=== PATIENT | female | born 1980 | race Caucasian/White ===

== ENCOUNTER 2017-12-03 00:52 | Inpatient (IN) | payer OTHER, MEDICARE ==
[2017-12-03] MEDS ORDERED: SODIUM CHLORIDE 0.9% 1,000 ML IV STA (01:00)
--- NOTE | 2017-12-03 01:08 | ED ---
Seizure HPI - General Chief Complaint: Seizure Stated Complaint: Seizure Time Seen by Provider: 12/03/17 01:00 Source: patient, family, EMS, RN notes reviewed Mode of arrival: EMS Limitations: no limitations - History of Present Illness Initial Comments: This is a 37-year-old female with a history of vasculitis as well as a previous history of stroke with carotid endarterectomy about 5 years ago who does have an aneurysm that was clipped also who apparently per her osmolality DL and stiffened up for approximately 10 minutes she did bite her lip and tongue is unclear whether was any shaking involved areas no urinary or fecal incontinence the patient's states her is about 5 minutes until she began respond at all. She normally is awake alert oriented 4. She was very confused is becoming less and less confused more oriented as time goes on. She was brought in by EMS. No recent trauma fevers chills nausea vomiting sweats no change in medications. No other modifying factors at this time MD Complaint: possible seizure - Related Data Home Medications Medication Instructions Recorded Confirmed LORazepam [Ativan] 1 mg PO DAILY PRN 08/18/17 08/18/17 Methyldopa 125 mg PO BID 08/18/17 08/18/17 Midodrine HCl [ProAmatine] 2.5 mg PO TID 08/18/17 08/18/17 Omeprazole 20 mg PO BID 08/18/17 08/18/17 Ranitidine HCl [Zantac] 75 mg PO DAILY PRN 08/18/17 08/18/17 diphenhydrAMINE [Benadryl] 50 mg PO HS PRN 08/18/17 08/18/17 tiZANidine [Zanaflex] 0.5 mg PO DAILY PRN 08/18/17 08/18/17 tiZANidine [Zanaflex] 1 mg PO HS PRN 08/18/17 08/18/17 Allergies Allergy/AdvReac Type Severity Reaction Status Date / Time acetaminophen [From Vicodin] Allergy Rash/Hives Verified 08/18/17 22:40 amoxicillin Allergy Rash/Hives Verified 08/18/17 22:40 ciprofloxacin Allergy Rash/Hives Verified 08/18/17 22:40 hydrocodone [From Vicodin] Allergy Rash/Hives Verified 08/18/17 22:40 Iodinated Contrast- Oral and Allergy Rash/Hives Verified 08/18/17 22:40 IV Dye morphine Allergy Rash/Hives Verified 08/18/17 22:40 oxycodone Allergy Rash/Hives Verified 08/18/17 22:40 pregabalin [From Lyrica] Allergy Rash/Hives Verified 08/18/17 22:40 pseudoephedrine Allergy Swelling Verified 08/18/17 22:40 [From Sudafed] topiramate [From Topamax] Allergy Confusion Verified 08/18/17 22:40 vancomycin Allergy Rash/Hives Verified 08/18/17 22:40 Review of Systems ROS Statement: Those systems with pertinent positive or pertinent negative responses have been documented in the HPI. ROS Other: All systems not noted in ROS Statement are negative. Past Medical History Additional Past Medical History / Comment(s): behcet's syndrome, francisco j daniles , POTS disorder, hx of spontaneous CSF leaks, brain aneurysm with clips, hemhorrage, cystitis, dystonia. History of Any Multi-Drug Resistant Organisms: None Reported Past Surgical History: Adenoidectomy, Section, Hysterectomy, Tonsillectomy Additional Past Surgical History / Comment(s): craniotomy, lap Additional Past Anesthesia/Blood Transfusion Reaction / Comment(s): Aspiration during colonoscopy Past Psychological History: No Psychological Hx Reported Smoking Status: Never smoker Past Alcohol Use History: None Reported Past Drug Use History: None Reported General Exam - General Exam Comments Initial Comments: This is a well-developed well-nourished awake alert oriented female who is so confused to the actual month Limitations: no limitations General appearance: alert, anxious Head exam: Present: atraumatic, normocephalic, normal inspection Eye exam: Present: normal appearance, PERRL, EOMI. Absent: scleral icterus, conjunctival injection, periorbital swelling ENT exam: Present: mucous membranes moist, other (Abrasion seen to the right lateral tip of the tongue as well as to the lower right and mid lip no active bleeding no suture repair indicated.) Neck exam: Present: normal inspection. Absent: tenderness, meningismus, lymphadenopathy Respiratory exam: Present: normal lung sounds bilaterally. Absent: respiratory distress, wheezes, rales, rhonchi, stridor Cardiovascular Exam: Present: regular rate, normal rhythm, normal heart sounds. Absent: systolic murmur, diastolic murmur, rubs, gallop, clicks GI/Abdominal exam: Present: soft, normal bowel sounds. Absent: distended, tenderness, guarding, rebound, rigid Extremities exam: Present: normal inspection, full ROM, normal capillary refill. Absent: tenderness, pedal edema, joint swelling, calf tenderness Back exam: Present: normal inspection Neurological exam: Present: alert, oriented X3, CN II-XII intact Psychiatric exam: Present: normal affect, normal mood Skin exam: Present: warm, dry, intact, normal color. Absent: rash Course Vital Signs 12/03/17 12/03/17 00:54 02:36 Temperature 97.5 F L Pulse Rate 94 79 Respiratory 16 20 Rate Blood Pressure 134/78 101/56 O2 Sat by Pulse 100 98 Oximetry Medical Decision Making - Medical Decision Making Reevaluation patient reveals she is awake alert oriented 3. No further activity the patient will be admitted for evaluation of what appears be a new onset seizure disorder. Patient does states she may have had a similar episode in the past. - Lab Data Result diagrams: 12/03/17 01:03 12/03/17 01:03 Lab Results 12/03/17 12/03/17 12/03/17 Range/Units 01:03 01:03 01:03 WBC 8.8 (3.8-10.6) k/uL RBC 4.33 (3.80-5.40) m/uL Hgb 12.9 (11.4-16.0) gm/dL Hct 37.6 (34.0-46.0) % MCV 86.8 (80.0-100.0) fL MCH 29.9 (25.0-35.0) pg MCHC 34.5 (31.0-37.0) g/dL RDW 12.9 (11.5-15.5) % Plt Count 252 (150-450) k/uL Neutrophils % 63 % Lymphocytes % 30 % Monocytes % 4 % Eosinophils % 1 % Basophils % 0 % Neutrophils # 5.6 (1.3-7.7) k/uL Lymphocytes # 2.6 (1.0-4.8) k/uL Monocytes # 0.4 (0-1.0) k/uL Eosinophils # 0.1 (0-0.7) k/uL Basophils # 0.0 (0-0.2) k/uL Sodium 143 (137-145) mmol/L Potassium 4.1 (3.5-5.1) mmol/L Chloride 103 (98-107) mmol/L Carbon Dioxide 23 (22-30) mmol/L Anion Gap 17 mmol/L BUN 24 H (7-17) mg/dL Creatinine 0.80 (0.52-1.04) mg/dL Est GFR (CKD-EPI)AfAm >90 (>60 ml/min/1.73 sqM) Est GFR (CKD-EPI)NonAf >90 (>60 ml/min/1.73 sqM) Glucose 83 (74-99) mg/dL Calcium 10.0 (8.4-10.2) mg/dL Magnesium 1.9 (1.6-2.3) mg/dL Total Bilirubin 0.3 (0.2-1.3) mg/dL AST 28 (14-36) U/L ALT 23 (9-52) U/L Alkaline Phosphatase 173 H (38-126) U/L Total Creatine Kinase 152 H (30-135) U/L CK-MB (CK-2) 2.0 (0.0-2.4) ng/mL CK-MB (CK-2) Rel Index 1.3 Troponin I <0.012 (0.000-0.034) ng/mL Total Protein 6.8 (6.3-8.2) g/dL Albumin 4.5 (3.5-5.0) g/dL Urine Color Urine Appearance (Clear) Urine pH (5.0-8.0) Ur Specific [place] (1.001-1.035) Urine Protein (Negative) Urine Glucose (UA) (Negative) Urine Ketones (Negative) Urine Blood (Negative) Urine Nitrite (Negative) Urine Bilirubin (Negative) Urine Urobilinogen (<2.0) mg/dL Ur Leukocyte Esterase (Negative) Urine RBC (0-5) /hpf Urine WBC (0-5) /hpf Ur Squamous Epith Cells (0-4) /hpf Hyaline Casts (0-2) /lpf Urine Mucus (None) /hpf 12/03/17 Range/Units 01:51 WBC (3.8-10.6) k/uL RBC (3.80-5.40) m/uL Hgb (11.4-16.0) gm/dL Hct (34.0-46.0) % MCV (80.0-100.0) fL MCH (25.0-35.0) pg MCHC (31.0-37.0) g/dL RDW (11.5-15.5) % Plt Count (150-450) k/uL Neutrophils % % Lymphocytes % % Monocytes % % Eosinophils % % Basophils % % Neutrophils # (1.3-7.7) k/uL Lymphocytes # (1.0-4.8) k/uL Monocytes # (0-1.0) k/uL Eosinophils # (0-0.7) k/uL Basophils # (0-0.2) k/uL Sodium (137-145) mmol/L Potassium (3.5-5.1) mmol/L Chloride (98-107) mmol/L Carbon Dioxide (22-30) mmol/L Anion Gap mmol/L BUN (7-17) mg/dL Creatinine (0.52-1.04) mg/dL Est GFR (CKD-EPI)AfAm (>60 ml/min/1.73 sqM) Est GFR (CKD-EPI)NonAf (>60 ml/min/1.73 sqM) Glucose (74-99) mg/dL Calcium (8.4-10.2) mg/dL Magnesium (1.6-2.3) mg/dL Total Bilirubin (0.2-1.3) mg/dL AST (14-36) U/L ALT (9-52) U/L Alkaline Phosphatase (38-126) U/L Total Creatine Kinase (30-135) U/L CK-MB (CK-2) (0.0-2.4) ng/mL CK-MB (CK-2) Rel Index Troponin I (0.000-0.034) ng/mL Total Protein (6.3-8.2) g/dL Albumin (3.5-5.0) g/dL Urine Color Light Yellow Urine Appearance Clear (Clear) Urine pH 5.0 (5.0-8.0) Ur Specific [place] 1.022 (1.001-1.035) Urine Protein Trace H (Negative) Urine Glucose (UA) Negative (Negative) Urine Ketones 3+ H (Negative) Urine Blood Negative (Negative) Urine Nitrite Negative (Negative) Urine Bilirubin Negative (Negative) Urine Urobilinogen <2.0 (<2.0) mg/dL Ur Leukocyte Esterase Large H (Negative) Urine RBC 1 (0-5) /hpf Urine WBC 15 H (0-5) /hpf Ur Squamous Epith Cells <1 (0-4) /hpf Hyaline Casts 8 H (0-2) /lpf Urine Mucus Rare H (None) /hpf - EKG Data -: EKG Interpreted by Me EKG shows normal: sinus rhythm (Sinus rhythm rate of 80 OR interval 162 QRS 84 QT since QTC of 386/[address]-T wave changes) - Radiology Data Radiology results: report reviewed (I did review the imaging and report no acute findings.), image reviewed Disposition Clinical Impression: New onset seizure Dis[facility] Condition: Stable Referrals: Rafael Arellano MD [REFERRING] - 1-2 days
[2017-12-03 01:15] LABS: HCT 37.6 % (34.0-46.0); HGB 12.9 gm/dL (11.4-16.0); MCH 29.9 pg (25.0-35.0); MCHC 34.5 g/dL (31.0-37.0); MCV 86.8 fL (80.0-100.0); Mean Platelet Volume 7.7; Platelet Count 252 k/uL (150-450); RBC 4.33 m/uL (3.80-5.40); RDW 12.9 % (11.5-15.5); WBC 8.8 k/uL (3.8-10.6)
[2017-12-03 01:25] LABS: ALT 23 U/L (9-52); AST 28 U/L (14-36); Albumin 4.5 g/dL (3.5-5.0); Alkaline Phosphatase 173 U/L (38-126); Anion Gap 17 mmol/L; Blood Urea Nitrogen 24 mg/dL (7-17); Carbon Dioxide 23 mmol/L (22-30); Chloride 103 mmol/L (98-107); Glucose 83 mg/dL (74-99); Magnesium 1.9 mg/dL (1.6-2.3); Potassium 4.1 mmol/L (3.5-5.1); Sodium 143 mmol/L (137-145); Total Bilirubin 0.3 mg/dL (0.2-1.3); Total Protein 6.8 g/dL (6.3-8.2)
[2017-12-03 01:35] LABS: Creatine Kinase 152 U/L (30-135)
[2017-12-03 01:48] LABS: Troponin I <0.012 ng/mL (0.000-0.034)
--- NOTE | 2017-12-03 02:05 | CT ---
EXAM: CT Head Without Intravenous Contrast CLINICAL HISTORY: : seizure activity TECHNIQUE: Axial computed tomography images of the head/brain without intravenous contrast. CTDI is 57.4 mGy and DLP is 964.3 mGy-cm. This CT exam was performed using one or more of the following dose reduction techniques: automated exposure control, adjustment of the mA and/or kV according to patient size, and/or use of iterative reconstruction technique. COMPARISON: 08/18/2017 FINDINGS: No significant interval change. Postoperative changes consistent with prior aneurysm clipping. No hemorrhage or hematoma noted no mass effect or midline shift noted. No change to the prior study IMPRESSION: Stable appearance of the brain with no acute abnormality. No change from prior study
[2017-12-03 02:07] LABS: Appearance,Urine Clear (Clear); Bilirubin,Urine Negative (Negative); Blood,Urine Negative (Negative); Color,Urine Light Yellow; Glucose,Urine (UA) Negative (Negative); Hyaline Casts,Urine 8 /lpf (0-2); Ketones,Urine 3+ (Negative); Leukocyte Esterase,Urine Large (Negative); Mucus,Urine Rare /hpf; Nitrite,Urine Negative (Negative); Protein,Urine Trace (Negative); RBC,Urine 1 /hpf (0-5); Specific Gravity,Urine 1.022 (1.001-1.035); Squamous Epithelial Cell,Urine <1 /hpf (0-4); Urobilinogen,Urine <2.0 mg/dL (<2.0); WBC,Urine 15 /hpf (0-5)
[2017-12-03] MEDS ORDERED: NALOXONE 0.4 MG/ML 1 ML VIAL IV PRN (03:05)
[2017-12-03] MEDS ORDERED: LORazepam 1 MG TAB PO PRN (03:07)
[2017-12-03] MEDS ORDERED: NON-FORMULARY DRUG (Ranitidine Hcl [Zantac] 75 MG) PO PRN (03:07)
[2017-12-03 04:02] VITALS: BMI 27.4
[2017-12-03] MEDS: HYDROmorphone 2 MG TAB PO PRN ×4 (04:31→20:43)
[2017-12-03] MEDS: diphenhydrAMINE 50 MG CAP PO PRN ×2 (04:41→20:44)
[2017-12-03] MEDS ORDERED: diphenhydrAMINE 25 MG CAP ONE (04:41)
[2017-12-03 07:23] LABS: Band Neutrophils % 1 %; Lymphocytes # (M) 2.73 k/uL (1.0-4.8); Monocytes # (M) 0.35 k/uL (0-1.0); Neutrophils % (M) 64 %; Nucleated Red Blood Cells 0 /100 WBC (0-0); Total Cells Counted 98
[2017-12-03] MEDS: PANTOPRAZOLE 40 MG TABLET PO SCH ×2 (08:45→20:44)
[2017-12-03] MEDS: MIDODRINE 5 MG TAB PO SCH ×3 (08:46→20:44)
[2017-12-03] MEDS: METHYLDOPA 250 MG TAB PO SCH ×2 (08:46→20:44)
--- NOTE | 2017-12-03 13:35 | XR ---
EXAMINATION TYPE: XR spine complete AP and Lat DATE OF EXAM: 12/03/2017 COMPARISON: NONE HISTORY: Neck and back pain after falling injury. TECHNIQUE: Frontal and lateral views of the entire spine are acquired. Additional and open mouth view cervical spine and swimmer's view cervical thoracic junction are acquired. FINDINGS: There is slight S-shaped scoliosis which is levoconvex in the upper thoracic spine, dextroc onvex in curvature in the midthoracic spine and levoconvex in curvature in the mid to lower thoracic spine. There are 5 lumbar type vertebra identified. There is no acute fracture or dislocation seen. S pine is somewhat straightened on lateral view particularly in the lumbar spine. There is some reversa l of normal cervical curvature in the cervical spine seen best on swimmer's view. Prevertebral soft t issue appears within normal limits and cervical spine. C1-C2 articulation is within normal limits on open mouth view. Overlying soft tissue is unremarkable. Visualized lungs are clear. Vertebral body he ights and disc space heights are maintained. IMPRESSION: No acute fracture or dislocation in the cervical spine is identified.
[2017-12-03] MEDS: cefTRIAXone IN SWFI 1,000 MG/10 ML SYRINGE IVP SCH (18:09)
[2017-12-03] MEDS ORDERED: levETIRAcetam IV 1,000 MG in SALINE 1 100ML.BAG IVPB STA (18:38)
--- NOTE | 2017-12-03 20:38 | HP ---
HISTORY AND PHYSICAL DATE OF SERVICE: 12/03/2017 CHIEF COMPLAINT: Seizures. HISTORY OF PRESENT ILLNESS: This 37-year-old woman with a past medical history of multiple medical problems, including CVA, Behcet's syndrome, Kiki-Danlos, POTS disorder, history of vasculitis, history of brain aneurysm with clips, being followed by Dr. Yee Abbott in the outpatient setting, has possible generalized tonic-clonic/seizure disorder. The patient also had stiffening and bit her upper lip and tongue, and the patient had incontinence. The patient was taken to [facility] and admitted for further evaluation and treatment. There is no history of any fever, rigor or chills. No chest pain, palpitations, hematochezia or melena. PAST MEDICAL HISTORY: 1. CVA, TIA. 2. Behcet's syndrome. 3. Kiki-Danlos. 4. POTS syndrome. 5. History of spontaneous CSF leaks. MEDICATIONS PRIOR TO ADMISSION: 1. Zantac 75 mg daily p.r.n. 2. Zanaflex 4 mg p.o. at bedtime. 3. Omeprazole 20 mg p.o. b.i.d. 4. ProAmatine 2.5 mg p.r.n. 5. Benadryl 50 mg p.o. at bedtime. 6. Methyldopa 125 mg p.o. b.i.d. ALLERGIES: 1. AMOXICILLIN. 2. CIPRO. 3. HYDROCODONE. 4. IODINATED CONTRAST DYES. 5. MORPHINE. 6. OXYCODONE. 7. LYRICA. 8. SUDAFED. 9. SHRIMP. 10.TOPAMAX. 11.VANCOMYCIN. FAMILY HISTORY: History of multiple sclerosis, hypertension, hyperlipidemia in the family. Multiple sclerosis workup. SOCIAL HISTORY: No history of smoking. No history of alcohol intake. REVIEW OF SYSTEMS: ENT: No diminished hearing. No diminished vision. CARDIOVASCULAR SYSTEM: As mentioned earlier. RESPIRATORY SYSTEM: As mentioned earlier. GI: No nausea, vomiting. : No dysuria or retention. NERVOUS SYSTEM: No numbness, weakness. ALLERGY/IMMUNOLOGY: No asthma, hayfever. MUSCULOSKELETAL: As mentioned earlier. HEMATOLOGY/ONCOLOGY: No history of anemia. ENDOCRINE: No history of diabetes, hypothyroidism. CONSTITUTIONAL: As mentioned earlier. DERMATOLOGY: Negative. RHEUMATOLOGY: Negative. PSYCHIATRY: As mentioned earlier. PHYSICAL EXAMINATION: Patient is alert and oriented x3. Pulse is 71, blood pressure 101/54, respiration 16, temperature 98.6, pulse ox 97% on room air. HEENT: Conjunctivae normal. Oral mucosa moist. NECK: No jugular venous distention. No carotid bruit. No lymph node enlargement. CARDIOVASCULAR SYSTEM: S1, S2 muffled. No S3. No S4. RESPIRATORY SYSTEM: Breath sounds diminished at the bases. No rhonchi. No crackles. ABDOMEN: Soft, non-tender. No mass palpable. LEGS: No edema. No swelling. NERVOUS SYSTEM: Higher functions as mentioned earlier. Moves all 4 limbs. No focal motor or sensory deficit. LYMPHATICS: No lymph node palpable in neck, axillae or groin. SKIN: No ulcer, rash, bleeding. LABS: CBC within normal limits. Alkaline phosphatase 173. UA noted. ASSESSMENT: 1. Generalized tonic-clonic seizures. 2. Acute urinary tract infection, present on admission. 3. Cerebrovascular accident, transient ischemic attack. 4. Behcet's syndrome. 5. History of Kiki-Danlos. 6. History of POTS disorder. 7. History of spontaneous CSF leaks. 8. History of brain aneurysm with clips. 9. History of cystitis. RECOMMENDATIONS AND DISCUSSION: In this 37-year-old woman who presented with multiple complex medical issues, we will monitor the patient closely, continue the current medications, continue with symptomatic treatment. Otherwise at this time I would recommend cultures, neurology evaluation, and a course of antibiotics as well. Resume the rest of the medications. The prognosis is guarded because of multiple complex medical issues. Further recommendations to follow. Discussed with the patient. I also recommend that the patient closely follow up with Neurology and primary physician as well. MMODL / IJN: [id number] /
[2017-12-04] MEDS: HYDROmorphone 2 MG TAB PO PRN ×3 (01:55→13:29)
[2017-12-04] MEDS ORDERED: levETIRAcetam 250 MG TAB PO SCH (08:00)
[2017-12-04] MEDS: METHYLDOPA 250 MG TAB PO SCH (08:31)
[2017-12-04] MEDS: MIDODRINE 5 MG TAB PO SCH ×2 (08:31→16:00)
[2017-12-04] MEDS: PANTOPRAZOLE 40 MG TABLET PO SCH (08:31)
[2017-12-04] MEDS: cefTRIAXone IN SWFI 1,000 MG/10 ML SYRINGE IVP SCH (08:31)
--- NOTE | 2017-12-04 08:57 | CONS ---
CONSULTATION DATE OF CONSULTATION: 12/03/2017 CHIEF COMPLAINT: Seizure. HISTORY OF PRESENT ILLNESS: Mrs. Shea is a pleasant 37-year-old, female, who is being evaluated today on 12/03/2017 by the neurology service per the request of Dr. Seo for a seizure. The patient was brought in to [facility] Emergency Room after she had a witnessed seizure. According to her , the patient stiffened up and was unresponsive for approximately 10 minutes. She did bite her tongue, but she did not have any sphincter incontinence. After the episode resolved, the patient remained quite confused and drowsy for 5 to 10 minutes. The patient was still somewhat confused when she arrived to the emergency room. The patient does have history of intracranial hemorrhage with aneurysm clipping. A CT scan of the brain was done, which did show the aneurysm clip and no acute intracranial abnormalities were seen. This was felt to be unchanged when compared to her 08/18/17 study. Her CBC and cardiac enzymes were normal. Her comprehensive metabolic profile was normal except for slightly elevated BUN at 24 and alkaline phosphatase at 173. Her urinalysis showed 15 WBCs with large leukocyte esterase. The patient states that she had a questionable seizure approximately 1 year ago where her right arm stiffened up for several minutes. She was placed on Trileptal at that time and it was discontinued a few months later. PAST MEDICAL HISTORY: History of intracranial hemorrhage with aneurysm clipping, Behcet's syndrome, Kiki- Danlos syndrome, POTS disorder, history of adenoidectomy, , hysterectomy, tonsillectomy. SOCIAL HISTORY: She denies any tobacco, alcohol or drug use. FAMILY HISTORY: Noncontributory. HOME MEDICATIONS: Reviewed in the chart. ALLERGIES: AMOXICILLIN, CIPROFLOXACIN, VICODIN, IV DYE, ORAL DYE, MORPHINE, OXYCODONE, LYRICA, SUDAFED, SHRIMP, TOPAMAX, VANCOMYCIN. REVIEW OF SYSTEMS: CONSTITUTIONAL: Negative. EYES: Negative. ENT: Negative. CARDIOVASCULAR: As mentioned above. RESPIRATORY: Negative. NEUROLOGICAL: As mentioned above. She denies any headache or any lateralizing numbness or weakness. GASTROINTESTINAL: Negative. GENITOURINARY: Negative. DERMATOLOGICAL: Negative. PSYCHIATRIC: Negative. ENDOCRINE: Negative. MUSCULOSKELETAL: Negative. PHYSICAL EXAM: Vital signs show a temperature of 98.6, pulse 71, respirations 16, blood pressure 101/54. GENERAL APPEARANCE: The patient is a well-developed female, who appears to be in no acute distress. HEENT: Normocephalic, atraumatic, no facial asymmetry is seen. NECK is supple with no masses felt. CARDIOVASCULAR: Regular rate and rhythm. ABDOMEN: Nontender, nondistended. Extremities showed no edema or clubbing. NEUROLOGICAL EXAM: The patient is alert, aware and oriented x3. Speech and language are normal. Strength is full in all 4 extremities. No facial asymmetry is seen on cranial nerve testing. Sensory exam was normal to light touch in all 4 extremities. No tremors or seizure-like activity is seen. IMPRESSION: 1. Seizure, tonic type. 2. History of brain aneurysm, status post clipping. 3. Headache, resolved. RECOMMENDATION: The patient did have a witnessed tonic seizure as mentioned above. She did have a more focal seizure approximately 1 year ago involving her right upper extremity. The patient is likely having secondary seizures given her history of craniotomy and aneurysm clipping. She will need to be on antiepileptic medications. I will start her on Keppra 1000 mg IV loading dose and Keppra 750 mg oral b.i.d. An EEG has been ordered. Continue neuro checks and seizure precautions. The patient was informed that she is not to drive or operate any other heavy machinery for a period of 6 months. I will continue to follow with you. Further recommendations to follow. Thank you for allowing me to participate in the care of your patient. If you have any questions, please feel free to contact me. MMALEXSANDRA / IJN: [id number] /
--- NOTE | 2017-12-04 13:30 | P.PN ---
Subjective Progress Note Date: 12/04/17 Principal diagnosis: Seizures This is a pleasant 37-year-old female continuing be evaluated by the neurology service for new onset seizures. She had a couple tonic type generalized seizures. Recall his computed tomography scan of the brain was done and showed aneurysmal clip in no acute intracranial abnormalities. She had been on Trileptal before for a possible episode of partial seizure activity. She stopped this on her own. She gives a history of Behcet's syndrome an Ehler Danlos syndrome. She says she has been on prednisone and methotrexate and CellCept but self discontinued these some months ago. She is scheduled to resume care with her fisher eel spear and other specialty teams at [facility] in [place]. This is according to the patient. She was started with IV loading dose of Keppra 1000 mg. She tolerated that well and is now on Keppra 750 mg twice daily. She is tolerating this well and has had no further seizure activity. An EEG has been performed. At this time my exam she is resting comfortably in bed in no acute distress. Objective - Vital Signs Vital signs: Vital Signs Temp 97.0 F L 12/04/17 07:20 Pulse 55 L 12/04/17 07:20 Resp 16 12/04/17 07:20 BP 105/73 12/04/17 07:20 Pulse Ox 99 12/04/17 07:20 Intake & Output 12/03/17 12/04/17 12/04/17 18:59 06:59 18:59 Intake Total 1300 1180 Balance 1300 1180 Weight 74.843 kg Intake: IV 800 Sodium Chloride 0.9% 1, 800 000 ml @ 100 mls/hr IV . Q10H STA Rx#:[id number] Oral 500 1180 Other: Voiding Method Toilet Toilet Toilet # Voids 2 1 - Constitutional General appearance: Present: cooperative, no acute distress - EENT Eyes: Present: PERRLA. Absent: abnormal pupil, ptosis ENT: Present: hearing grossly normal - Neck Neck: Present: normal ROM. Absent: rigidity - Respiratory Respiratory: negative: prolonged expiration, prolonged inspiration - Cardiovascular Rhythm: regular - Gastrointestinal General gastrointestinal: Absent: distended, tenderness - Neurologic Neurologic Comment(s): The patient is alert awake and oriented 3. Speech and language are normal. There is no facial asymmetry. Strength is 5 out of 5 in bilateral upper and lower extremities. There is no sensory deficit. No tremors or seizures are seen. Cranial nerves II through XII are intact globally. - Labs CBC & Chem 7: 12/03/17 01:03 12/03/17 01:03 Labs: Microbiology - Last 24 Hours (Table) 12/03/17 19:40 Urine Culture - Preliminary Urine,Voided Assessment and Plan (1) Behcets syndrome Current Visit: Yes Status: Chronic Code(s): M35.2 - BEHCET'S DISEASE SNOMED Code(s): 191399153 (2) New onset seizure Current Visit: Yes Status: Chronic Code(s): R56.9 - UNSPECIFIED CONVULSIONS SNOMED Code(s): 61248462 (3) Aneurysm Current Visit: No Status: Chronic Code(s): I72.9 - ANEURYSM OF UNSPECIFIED SITE SNOMED Code(s): 453801920 (4) Headache Current Visit: No Status: Resolved Code(s): R51 - HEADACHE SNOMED Code(s) : 98949825 Plan: Given her history of craniotomy and aneurysmal clipping, the patient is having secondary seizures. This is not the first episode. Recommend she continue on antiepileptic medication indefinitely. For now she will continue Keppra 750 mg twice daily as ordered. Again the patient was informed that she is not to drive or operate any heavy equipment for. If 6 months after seizure activity. Barring any unforeseen abnormalities on her EEG she is cleared from a neurological standpoint. I have performed a history and physical on the above patient. I have reviewed the above note, and agree.
[2017-12-04 14:56] VITALS: BP 103/66; PULSE 79; RESP 18; TEMP 98.4
--- NOTE | 2017-12-05 08:10 | DS ---
DISCHARGE SUMMARY DATE OF SERVICE: 12/04/2017. FINAL DIAGNOSES: 1. Generalized tonic-clonic seizures. 2. Acute urinary tract infection present on admission. 3. Cerebrovascular accident, transient ischemic attack. 4. Behcet's syndrome. 5. History of Kiki-Danlos. 6. History of POTS disorder. 7. History of spontaneous CSF leak. 8. History of brain aneurysm with clip. 9. History of cystitis. DISCHARGE DISPOSITION: The patient is discharged with stable condition with guarded prognosis. HISTORY OF PRESENT ILLNESS: This 37-year-old woman with a past medical history of multiple medical problems admitted with generalized tonic-clonic seizures. The patient was seen by Neurology. Patient improved significantly and neurovascular workup was basically negative. The patient will be discharged in stable condition with guarded prognosis. The possibility [employer] vascular disease to be considered. The patient will follow up with the patient's own neurologist regarding the followup. On exam, vitals are stable. Cardiovascular: S1, S2. Abdomen: Soft. Nervous System: No focal deficits. DISCHARGE ADVICE AND MEDICATION: 1. Diet is cardiac. 2. Activities limited until followup. 3. Follow up with primary physician, Dr. Abbott in 1-2 days. 4. Follow with Dr. Churchill as advised. MEDICATIONS: 1. Ceftin 500 mg p.o. b.i.d. for 3 days. 2. Benadryl 50 mg q.h.s. 3. Keppra 750 mg p.o. b.i.d. 4. Methyldopa 120 mg p.o. b.i.d. 5. ProAmatine 2.5 mg p.r.n. 6. Omeprazole 20 mg b.i.d. 7. Zantac 175 mg daily. 8. Zanaflex 1 mg q.h.s. Once again, the patient is discharged in a stable condition with guarded prognosis. MMODL / IJN: [id number] /
--- NOTE | 2017-12-07 17:56 | EEG ---
ELECTROENCEPHALOGRAM REPORT DATE OF SERVICE: 12/04/2017 REASON FOR TESTING: Seizure. CURRENT ANTI-EPILEPTIC MEDICATION: Keppra. DESCRIPTION OF THE PROCEDURE: This EEG was performed using a 21-channel digital electroencephalograph, following international 10-20 system. DESCRIPTION OF THE RECORDING: From the beginning of the tracing, and with the patient's eyes closed, the background rhythm was mostly consisting of 9 Hz alpha frequency in the posterior occipital leads. No obvious asymmetry is seen. Occasional movement artifacts are seen. Photic stimulation was performed with a good driving response seen. No pathological waves were elicited. Occasional dysregulation is noticed. Occasional movement artifacts are seen. The patient does reach stage II of sleep during the tracing and occasional sleep spindles are seen. Hyperventilation was not performed. No obvious epileptiform discharges were seen. Occasional phase reversals are seen. Her EKG lead showed a regular rate and rhythm. INTERPRETATION: This asleep and awake EEG is abnormal due to the presence of recurrent dysregulation and occasional phase reversals. These findings are consistent with a reduced seizure threshold. No obvious epileptiform discharges were seen. The absence of epileptiform discharges does not rule out the diagnosis of epilepsy; therefore clinical correlation is recommended. MMODL / IJN: [id number] /
== END 2017-12-04 16:13 | disposition home or self-care (01) | DRG 101 ==
LOC: EC 00:52 → 3SUR 03:05
PROVIDERS: ADMIT Internal Medicine; ATTEND Internal Medicine
DX: G40.409 Other generalized epilepsy and epileptic syndromes, not intractable, without status epilepticus (principal); M35.2 Behcet's disease; N39.0 Urinary tract infection, site not specified; Q79.6 Ehlers-Danlos syndromes; I49.8 Other specified cardiac arrhythmias; I67.1 Cerebral aneurysm, nonruptured; R51 Headache; Z79.899 Other long term (current) drug therapy; Z88.5 Allergy status to narcotic agent; Z88.0 Allergy status to penicillin; Z88.8 Allergy status to other drugs, medicaments and biological substances; Z88.1 Allergy status to other antibiotic agents; Z91.041 Radiographic dye allergy status; Z90.710 Acquired absence of both cervix and uterus; Z86.73 Personal history of transient ischemic attack (TIA), and cerebral infarction without residual deficits; Z87.440 Personal history of urinary (tract) infections; Z82.0 Family history of epilepsy and other diseases of the nervous system; Z82.49 Family history of ischemic heart disease and other diseases of the circulatory system; Z84.89 Family history of other specified conditions
CPT/HCPCS: 36415; 70450; 72082; 80053; 81001; 82550; 82553; 83735; 84484; 85025; 87086; 93005; 95819; 96360; 96361; 99285

== ENCOUNTER 2023-12-09 23:07 | Emergency (ER) | payer OTHER, MEDICARE ==
--- NOTE | 2023-12-09 23:37 | ED ---
General Adult HPI - General Chief complaint: Extremity Injury, Upper Stated complaint: Rt hand injury Time Seen by Provider: 12/09/23 23:13 Source: patient, RN notes reviewed Mode of arrival: ambulatory Limitations: no limitations - History of Present Illness Initial comments: 43-year-old female presents to the ED with a chief complaint of left arm pain. Patient states that she was walking her dog today when the dog suddenly went to [place] after a cat. Due to this, states that the dogs leash wrapped around her arm and pulled on it. Since this morning, reports increasing pain of her left hand, left forearm, left upper arm, and left shoulder. No other injuries at this time. No other complaints. - Related Data Home Medications Medication Instructions Recorded Confirmed Methyldopa 125 mg PO BID 08/18/17 12/03/17 Midodrine HCl [ProAmatine] 2.5 mg PO DIRECTED 08/18/17 12/03/17 Omeprazole 20 mg PO BID 08/18/17 12/03/17 diphenhydrAMINE [Benadryl] 50 mg PO HS 08/18/17 12/03/17 raNITIdine HCL [Zantac] 75 mg PO DAILY PRN 08/18/17 12/03/17 Previous Rx's Medication Instructions Recorded cefUROXime axetiL [Ceftin] 500 mg PO BID #6 tab 12/04/17 levETIRAcetam [Keppra] 750 mg PO Q12H #60 tab 12/04/17 tiZANidine [Zanaflex] 1 mg PO HS PRN #30 tab 12/04/17 Allergies Allergy/AdvReac Type Severity Reaction Status Date / Time amoxicillin Allergy Rash/Hives Verified 12/09/23 23:11 ciprofloxacin Allergy Rash/Hives Verified 12/09/23 23:11 hydrocodone [From Vicodin] Allergy Rash/Hives Verified 12/09/23 23:11 Iodinated Contrast Media Allergy Rash/Hives Verified 12/09/23 23:11 [Iodinated Contrast- Oral and IV Dye] morphine Allergy Rash/Hives Verified 12/09/23 23:11 oxycodone Allergy Rash/Hives Verified 12/09/23 23:11 pregabalin [From Lyrica] Allergy Rash/Hives Verified 12/09/23 23:11 pseudoephedrine Allergy Swelling Verified 12/09/23 23:11 [From Sudafed] shrimp Allergy Rash/Hives Verified 12/09/23 23:11 tizanidine [From Zanaflex] Allergy Rash/Hives Verified 12/09/23 23:11 topiramate [From Topamax] Allergy Confusion Verified 12/09/23 23:11 vancomycin Allergy Rash/Hives Verified 12/09/23 23:11 Review of Systems ROS Statement: Those systems with pertinent positive or pertinent negative responses have been documented in the HPI. ROS Other: All systems not noted in ROS Statement are negative. Past Medical History Past Medical History: CVA/TIA Additional Past Medical History / Comment(s): behcet's syndrome, francisco j daniles, POTS disorder, hx of spontaneous CSF leaks, brain aneurysm with clips, hemhorrage, cystitis, dystonia. left sided weakness from CVA History of Any Multi-Drug Resistant Organisms: None Reported Past Surgical History: Adenoidectomy, Section, Hysterectomy, Tonsillectomy Additional Past Surgical History / Comment(s): craniotomy, lap Additional Past Anesthesia/Blood Transfusion Reaction / Comment(s): Aspiration during colonoscopy Past Psychological History: No Psychological Hx Reported Past Alcohol Use History: None Reported Past Drug Use History: None Reported - Past Family History Mother Family Medical History: Hyperlipidemia, Hypertension Additional Family Medical History / Comment(s): lesions on brain, worked up for MS but not MS lesions. Father Family Medical History: Diabetes Mellitus, Liver Disease Additional Family Medical History / Comment(s): alcoholic. General Exam Limitations: no limitations General appearance: alert, in no apparent distress Eye exam: Present: normal appearance Neck exam: Present: normal inspection Respiratory exam: Present: normal lung sounds bilaterally Cardiovascular Exam: Present: regular rate GI/Abdominal exam: Present: soft Extremities exam: Present: other (Full passive range of motion of left upper extremity. Radial pulses. Good capillary refill. Upon palpation, no significant tenderness, crepitus, step-offs, or obvious deformity of left upper extremity shoulder. No clawhand or waiters tip deformity.) Neurological exam: Present: alert, oriented X3 Skin exam: Present: warm, dry Course Vital Signs 12/09/23 23:10 Temperature 98.5 F Pulse Rate 69 Respiratory 18 Rate Blood Pressure 133/86 O2 Sat by Pulse 100 Oximetry Medical Decision Making - Medical Decision Making Was pt. sent in by a medical professional or institution (JAEL Cook, [employer] SERVICES MANAGER, urgent care, hospital, or snf...) When possible be specific @ -No Did you speak to anyone other than the patient for history (EMS, parent, family, police, friend...)? What history was obtained from this source @ -No Did you review nursing and triage notes (agree or disagree)? Why? @ -I reviewed and agree with nursing and triage notes Were old charts reviewed (outside hosp., previous admission, EMS record, old EKG, old radiological studies, urgent care reports/EKG's, snf records)? Report findings @ -No old charts were reviewed Differential Diagnosis (chest pain, altered mental status, abdominal pain women, abdominal pain men, vaginal bleeding, weakness, fever, dyspnea, syncope, headache, dizziness, GI bleed, back pain, seizure, CVA, palpatations, mental health, musculoskeletal)? @ -Differential Musculoskeletal Muscular strain, contusion, ligament sprain, fracture, arthritis, septic arthritis, bursitis, cellulitis, muscle spasm, nerve compression, DVT, arterial occlusion, herpes zoster, electrolyte abnormality, tumor.... This is not meant to be in all inclusive list EKG interpreted by me (3pts min.). @ -None X-rays interpreted by me (1pt min.). @ -X-rays of the hand, forearm, humerus, shoulder interpreted me which revealed no evidence of acute finding. CT interpreted by me (1pt min.). @ -None done U/S interpreted by me (1pt. min.). @ -None done What testing was considered but not performed or refused? (CT, X-rays, U/S, labs)? Why? @ -None What meds were considered but not given or refused? Why? @ -None Did you discuss the management of the patient with other professionals (professionals i.e. JAEL Cook, [employer] SERVICES MANAGER, lab, RT, psych nurse, licensed master social worker, anode rebuilder, teacher, infantry weapons officer, case assistant)? Give summary @ -No Was smoking cessation discussed for >3mins.? @ -No Was critical care preformed (if so, how long)? @ -No Were there social determinants of health that impacted care today? How? (Homelessness, low income, unemployed, alcoholism, drug addiction, transportation, low edu. Level, literacy, decrease access to med. care, [facility], rehab)? @ -No Was there de-escalation of care discussed even if they declined (Discuss DNR or withdrawal of care, Hospice)? DNR status @ -No What co-morbidities impacted this encounter? (DM, HTN, Smoking, COPD, CAD, Cancer, CVA, ARF, Chemo, Hep., AIDS, mental health diagnosis, sleep apnea, morbid obesity)? @ -None Was patient admitted / discharged? Hospital course, mention meds given and route, prescriptions, significant lab abnormalities, going to OR and other pertinent info. @ -Discharge 43-year-old female presents to the ED with complaints of hand and arm pain after she was walking her dog this morning and the dog got excited and tried to run after her cat causing the leash to wrap around her arm. Now complaining of pain diffusely of the right arm with paresthesias going down her shoulder. On examination strength and sensation intact. Radial pulses intact. Good capillary refill. No significant bony tenderness to palpation, no crepitus step-off or deformities. Imaging reviewed which revealed no evidence of acute finding. Discharged home in stable condition with instructions to follow-up with her PCP. Discussed return precautions with patient who verbalized agreement. Undiagnosed new problem with uncertain prognosis? @ -No Drug Therapy requiring intensive monitoring for toxicity (Heparin, Nitro, Insulin, Cardizem)? @ -No Were any procedures done? @ -No Diagnosis/symptom? @ -Right arm pain Acute, or Chronic, or Acute on Chronic? @ -Acute Uncomplicated (without systemic symptoms) or Complicated (systemic symptoms)? @ -Uncomplicated Side effects of treatment? @ -No Exacerbation, Progression, or Severe Exacerbation? @ -No Poses a threat to life or bodily function? How? (Chest pain, [place], [place], pneumonia, PE, COPD, DKA, ARF, appy, cholecystitis, CVA, Diverticulitis, Homicidal, Suicidal, threat to staff... and all critical care pts) @ -No Disposition Clinical Impression: Right arm pain Disposition: HOME SELF-CARE Condition: Good Additional Instructions: Please return to the Emergency Department if symptoms worsen or any other concerns. Please use [id number] medications as needed for pain. Follow- up with your primary care provider. Is patient prescribed a controlled substance at d/c from ED?: No Referrals: Jennifer Price MD [Primary Care Provider] - 1-2 days Time of Disposition: 01:02
[2023-12-09 23:54] VITALS: RESP 18
[2023-12-09] MEDS: KETOROLAC 15 MG/ML 1 ML VIAL IM STA (23:58)
--- NOTE | 2023-12-10 01:16 | XR ---
EXAM: XR Right Shoulder Complete, 2 or More Views CLINICAL HISTORY: ITS.REASON XR Reason: s/p injury r/o fx dislocation TECHNIQUE: Two or more views of the right shoulder. COMPARISON: No relevant prior studies available. FINDINGS: Bones/joints: Unremarkable. No acute fracture. No dislocation. Soft tissues: Unremarkable. IMPRESSION: Normal right shoulder x-rays.
--- NOTE | 2023-12-10 01:16 | XR ---
EXAM: XR Right Hand Complete, 3 or More Views CLINICAL HISTORY: ITS.REASON XR Reason: s/p injury r/o fx dislocation TECHNIQUE: Frontal, lateral and oblique views of the right hand. COMPARISON: No relevant prior studies available. FINDINGS: Bones/joints: Unremarkable. No acute fracture. No dislocation. Soft tissues: Unremarkable. No radiopaque foreign body. IMPRESSION: Normal right hand x-rays.
--- NOTE | 2023-12-10 01:17 | XR ---
EXAM: XR Right Forearm, 2 Views CLINICAL HISTORY: ITS.REASON XR Reason: s/p injury r/o fx dislocation TECHNIQUE: Frontal and lateral views of the right forearm. COMPARISON: No relevant prior studies available. FINDINGS: Bones/joints: Unremarkable. No acute fracture. No dislocation. Soft tissues: Unremarkable. IMPRESSION: Normal right forearm x-rays.
--- NOTE | 2023-12-10 01:17 | XR ---
EXAM: XR Right Humerus, 2 or More Views CLINICAL HISTORY: ITS.REASON XR Reason: s/p injury r/o fx dislocation TECHNIQUE: Frontal and lateral views of the right humerus. COMPARISON: No relevant prior studies available. FINDINGS: Bones/joints: Unremarkable. No acute fracture. No dislocation. Soft tissues: Unremarkable. IMPRESSION: Normal right humerus x-rays.
[2023-12-10 01:56] VITALS: BP 130/81; PULSE 64; TEMP 98.4
== END 2023-12-10 01:11 | disposition home or self-care (01) ==
LOC: EC 23:07
DX: M79.601 Pain in right arm (principal); Z88.0 Allergy status to penicillin; Z88.5 Allergy status to narcotic agent; Z91.041 Radiographic dye allergy status; Z88.1 Allergy status to other antibiotic agents; Z88.8 Allergy status to other drugs, medicaments and biological substances
CPT/HCPCS: 73030; 73060; 73090; 73130; 99283; 96372; J1885

== ENCOUNTER 2024-06-12 01:20 | Emergency (ER) | payer MEDICARE, OTHER ==
[2024-06-12] MEDS: SODIUM CHLORIDE 0.9% 1,000 ML IV STA (01:58)
[2024-06-12] MEDS: ONDANSETRON 4 MG/2 ML VIAL IVP STA (01:59)
[2024-06-12] MEDS: KETOROLAC 15 MG/ML 1 ML VIAL IVP STA ×2 (02:00→05:04)
[2024-06-12 02:17] LABS: Basophils # (A) 0.1 k/uL (0-0.2); Basophils % (A) 1 %; Eosinophils # (A) 0.2 k/uL (0-0.7); Eosinophils % (A) 2 %; HCT 42.6 % (34.0-46.0); HGB 14.4 gm/dL (11.4-16.0); Lymphocytes # (A) 3.8 k/uL (1.0-4.8); Lymphocytes % (A) 49 %; MCH 30.6 pg (25.0-35.0); MCHC 33.9 g/dL (31.0-37.0); MCV 90.4 fL (80.0-100.0); Mean Platelet Volume 7.5; Monocytes # (A) 0.4 k/uL (0-1.0); Monocytes % (A) 5 %; Neutrophils # (A) 3.2 k/uL (1.3-7.7); Neutrophils % (A) 42 %; Platelet Count 256 k/uL (150-450); RBC 4.71 m/uL (3.80-5.40); WBC 7.8 k/uL (3.8-10.6)
[2024-06-12 02:26] LABS: ALT 15 U/L (4-34); AST 24 U/L (14-36); African American GFR (CKD) >90 (>60 ml/min/1.73 sqM); Alkaline Phosphatase 122 U/L (38-126); Amylase 50 U/L (30-110); Anion Gap 8 mmol/L; Blood Urea Nitrogen 14 mg/dL (7-17); Calcium 9.7 mg/dL (8.4-10.2); Carbon Dioxide 28 mmol/L (22-30); Chloride 103 mmol/L (98-107); Glucose 104 mg/dL (74-99); Lipase 120 U/L (23-300); Non-African American GFR(CKD) 80 (>60 ml/min/1.73 sqM); Sodium 139 mmol/L (137-145); Total Bilirubin 0.6 mg/dL (0.2-1.3)
[2024-06-12 02:42] VITALS: RESP 18
[2024-06-12] MEDS: MAG HYDROX/AL HYDROX/SIMETH 30 ML, HYOSCYAMINE ELIXIR 10 ML, LIDOCAINE VISCOUS 2% 10 ML PO STA (02:47)
[2024-06-12] MEDS: FAMOTIDINE 20 MG/2 ML VIAL IV STA (02:49)
[2024-06-12 03:08] LABS: Appearance,Urine Clear (Clear); Bilirubin,Urine Negative (Negative); Blood,Urine Negative (Negative); Color,Urine Colorless; Glucose,Urine (UA) Negative (Negative); Ketones,Urine Negative (Negative); Leukocyte Esterase,Urine Moderate (Negative); Mucus,Urine Occasional /hpf; Nitrite,Urine Negative (Negative); Protein,Urine Negative (Negative); RBC,Urine 1 /hpf (0-5); Squamous Epithelial Cell,Urine <1 /hpf (0-4); Urobilinogen,Urine <2.0 mg/dL (<2.0); WBC,Urine 3 /hpf (0-5)
--- NOTE | 2024-06-12 03:49 | ED ---
Abdominal Pain HPI - General Source: patient Mode of arrival: ambulatory Limitations: no limitations <Maegan Allan - Last Filed: 06/12/24 03:48> - General Source: patient, RN notes reviewed, old records reviewed Mode of arrival: ambulatory Limitations: no limitations - History of Present Illness MD Complaint: abdominal pain -: days(s) Location: epigastric Radiation: epigastric Migration to: epigastric Severity: moderate Severity scale (1-10): 4 Quality: aching Consistency: constant Improves With: nothing Worsens With: nothing Associated Symptoms: nausea <Cas Brumfield - Last Filed: 06/12/24 21:20> - General Chief Complaint: Abdominal Pain Stated Complaint: Abd pain Time Seen by Provider: 06/12/24 01:34 - History of Present Illness Initial Comments: 44-year-old female presenting with chief complaint of abdominal pain. Patient is having epigastric pain that radiates into her back and up into her chest. Has been ongoing for the last few days and is worse tonight. Worse after she eats. Admits to nausea with no vomiting. No hematochezia or melena. No hematemesis. No cough, congestion, sore throat, fever, chills. No difficulty breathing. No urinary symptoms. (Maegan Allan) This is a 44 female to ER for evaluation of abdominal pain (Cas Brumfield) - Related Data Home Medications Medication Instructions Recorded Confirmed Methyldopa 125 mg PO BID 08/18/17 12/03/17 Midodrine HCl [ProAmatine] 2.5 mg PO DIRECTED 08/18/17 12/03/17 Omeprazole 20 mg PO BID 08/18/17 12/03/17 diphenhydrAMINE [Benadryl] 50 mg PO HS 08/18/17 12/03/17 raNITIdine HCL [Zantac] 75 mg PO DAILY PRN 08/18/17 12/03/17 Previous Rx's Medication Instructions Recorded cefuroxime axetiL [Ceftin] 500 mg PO BID #6 tab 12/04/17 levETIRAcetam [Keppra] 750 mg PO Q12H #60 tab 12/04/17 tiZANidine [Zanaflex] 1 mg PO HS PRN #30 tab 12/04/17 Allergies Allergy/AdvReac Type Severity Reaction Status Date / Time amoxicillin Allergy Rash/Hives Verified 06/12/24 01:28 ciprofloxacin Allergy Rash/Hives Verified 06/12/24 01:28 hydrocodone [From Vicodin] Allergy Rash/Hives Verified 06/12/24 01:28 Iodinated Contrast Media Allergy Rash/Hives Verified 06/12/24 01:28 [Iodinated Contrast- Oral and IV Dye] morphine Allergy Rash/Hives Verified 06/12/24 01:28 oxycodone Allergy Rash/Hives Verified 06/12/24 01:28 pregabalin [From Lyrica] Allergy Rash/Hives Verified 06/12/24 01:28 pseudoephedrine Allergy Swelling Verified 06/12/24 01:28 [From Sudafed] shrimp Allergy Rash/Hives Verified 06/12/24 01:28 tizanidine [From Zanaflex] Allergy Rash/Hives Verified 06/12/24 01:28 topiramate [From Topamax] Allergy Confusion Verified 06/12/24 01:28 vancomycin Allergy Rash/Hives Verified 06/12/24 01:28 Review of Systems ROS Other: All systems not noted in ROS Statement are negative. <Maegan Allan - Last Filed: 06/12/24 03:48> ROS Other: All systems not noted in ROS Statement are negative. <Cas Brumfield - Last Filed: 06/12/24 21:20> ROS Statement: Those systems with pertinent positive or pertinent negative responses have been documented in the HPI. Past Medical History Past Medical History: CVA/TIA Additional Past Medical History / Comment(s): behcet's syndrome, francisco j daniles, POTS disorder, hx of spontaneous CSF leaks, brain aneurysm with clips, hemhorrage, cystitis, dystonia. left sided weakness from CVA History of Any Multi-Drug Resistant Organisms: None Reported Past Surgical History: Adenoidectomy, Section, Hysterectomy, Tonsillectomy Additional Past Surgical History / Comment(s): craniotomy, lap Additional Past Anesthesia/Blood Transfusion Reaction / Comment(s): Aspiration during colonoscopy Past Psychological History: No Psychological Hx Reported Smoking Status: Never smoker Past Alcohol Use History: None Reported Past Drug Use History: None Reported - Past Family History Mother Family Medical History: Hyperlipidemia, Hypertension Additional Family Medical History / Comment(s): lesions on brain, worked up for MS but not MS lesions. Father Family Medical History: Diabetes Mellitus, Liver Disease Additional Family Medical History / Comment(s): alcoholic. <Maegan Allan - Last Filed: 06/12/24 03:48> General Exam Limitations: no limitations General appearance: alert, in no apparent distress Head exam: Present: atraumatic, normocephalic, normal inspection Eye exam: Present: normal appearance, EOMI Neck exam: Present: normal inspection. Absent: meningismus Respiratory exam: Present: normal lung sounds bilaterally. Absent: respiratory distress, wheezes, rales, rhonchi, stridor Cardiovascular Exam: Present: regular rate, normal rhythm, normal heart sounds. Absent: systolic murmur, diastolic murmur, rubs, gallop, clicks GI/Abdominal exam: Present: soft, tenderness (Upper abdomen). Absent: distended, guarding, rebound, rigid Neurological exam: Present: alert, oriented X3 Psychiatric exam: Present: normal affect, normal mood Skin exam: Present: warm, dry <Maegan Allan - Last Filed: 06/12/24 03:48> General appearance: alert, in no apparent distress Head exam: Present: atraumatic, normocephalic, normal inspection Eye exam: Present: normal appearance, PERRL, EOMI. Absent: scleral icterus, conjunctival injection, periorbital swelling ENT exam: Present: normal exam, mucous membranes moist Neck exam: Present: normal inspection. Absent: tenderness, meningismus, lymphadenopathy Respiratory exam: Present: normal lung sounds bilaterally. Absent: respiratory distress, wheezes, rales, rhonchi, stridor Cardiovascular Exam: Present: regular rate, normal rhythm, normal heart sounds. Absent: systolic murmur, diastolic murmur, rubs, gallop, clicks GI/Abdominal exam: Present: soft, normal bowel sounds. Absent: distended, tenderness, guarding, rebound, rigid Extremities exam: Present: normal inspection, full ROM, normal capillary refill. Absent: tenderness, pedal edema, joint swelling, calf tenderness Back exam: Present: normal inspection Neurological exam: Present: alert, oriented X3, CN II-XII intact Psychiatric exam: Present: normal affect, normal mood Skin exam: Present: warm, dry, intact, normal color. Absent: rash <Cas Brumfield - Last Filed: 06/12/24 21:20> Course <Cas Brumfield - Last Filed: 06/12/24 21:20> Vital Signs 06/12/24 06/12/24 06/12/24 01:28 02:15 04:00 Temperature 97.4 F L Pulse Rate 65 65 64 Respiratory 16 18 18 Rate Blood Pressure 130/83 132/77 101/68 O2 Sat by Pulse 99 98 97 Oximetry 06/12/24 04:50 Temperature 98.3 F Pulse Rate 62 Respiratory 18 Rate Blood Pressure 98/64 O2 Sat by Pulse 100 Oximetry - Reevaluation(s) Reevaluation #1: 06/12/24 05:07 Medical records reviewed (Cas Brumfield) Reevaluation #2: 06/12/24 05:07 Patient symptoms improved (Cas Brumfield) Reevaluation #3: 06/12/24 05:07 Patient informed of results questions answered (Cas Brumfield) Reevaluation #4: Was pt. sent in by a medical professional or institution (, PA, BOTTLE INSPECTOR, urgent care, hospital, or group home...) When possible be specific @ -no Did you speak to anyone other than the patient for history (EMS, parent, family, police, friend...)? What history was obtained from this source @ -no Did you review nursing and triage notes (agree or disagree)? Why? @ -agree Are old charts reviewed (outside hosp., previous admission, EMS record, old EKG, old radiological studies, urgent care reports/EKG's, group home records)? Report findings @ -yes Differential Diagnosis (chest pain, altered mental status, abdominal pain women, abdominal pain men, vaginal bleeding, weakness, fever, dyspnea, syncope, headache, dizziness, GI bleed, back pain, seizure, CVA, palpatations, mental health, musculoskeletal)? @ -prior EKG interpreted by me (3pts min.). @ -yes X-rays interpreted by me (1pt min.). @ -no CT interpreted by me (1pt min.). @ -yes negative for acute disease U/S interpreted by me (1pt. min.). @ -no What testing was considered but not performed or refused? (CT, X-rays, U/S, labs)? Why? @ -none What meds were considered but not given or refused? Why? @ -none Did you discuss the management of the patient with other professionals (professionals i.e. , PA, BOTTLE INSPECTOR, lab, RT, psych nurse, social media developer, aquatic director, teacher, tactical intelligence officer, manager rn case)? Give summary @ -no Was smoking cessation discussed for >3mins.? @ -no Was critical care preformed (if so, how long)? @ -no Were there social determinants of health that impacted care today? How? (Gerard elessness, low income, unemployed, alcoholism, drug addiction, transportation, low edu. Level, literacy, decrease access to med. care, fci, rehab)? @ -none Was there de-escalation of care discussed even if they declined (Discuss DNR or withdrawal of care, Hospice)? DNR status @ -no What co-morbidities impacted this encounter? (DM, HTN, Smoking, COPD, CAD, Cancer, CVA, ARF, Chemo, Hep., AIDS, mental health diagnosis, sleep apnea, morbid obesity)? @ -none Was patient admitted / discharged? Hospital course, mention meds given and route, prescriptions, significant lab abnormalities, going to OR and other pertinent info. @ - 44 Female to ER for nonspecific abdominal pain, normal lab testing normal CT patient can be discharged home Discharge Undiagnosed new problem with uncertain prognosis? @ -no Drug Therapy requiring intensive monitoring for toxicity (Heparin, Nitro, Insulin, Cardizem)? @ -no Were any procedures done? @ -no Diagnosis/symptom? @ -Abdominal pain NOS Acute, or Chronic, or Acute on Chronic? @ -Acute Uncomplicated (without systemic symptoms) or Complicated (systemic symptoms)? @ -Complicated Side effects of treatment? @ -no Exacerbation, Progression, or Severe Exacerbation? @ -exacerbation Poses a threat to life or bodily function? How? (Chest pain, [place], [place], pneumonia, PE, COPD, DKA, ARF, appy, cholecystitis, CVA, Diverticulitis, Homicidal, Suicidal, threat to staff... and all critical care pts) @ -no (Cas Brumfield) Reevaluation #5: Differential Abdominal Pain Women: Appendicitis, Cholecystitis, diverticulosis, ischemic bowel, pancreatitis, hepatitis, UTI, gastroenteritis, AAA, incarcerated hernia, bowel obstruction, constipation, inflammatory bowel, hepatitis, peptic ulcer disease, splenic infarction, perforated viscus, vulvitis, ovarian torsion, PID, kidney stone, placenta abruption, this is not meant to be an all-inclusive list (Cas Brumfield) Medical Decision Making - Lab Data Result diagrams: 06/12/24 01:50 06/12/24 01:50 <Maegan Allan - Last Filed: 06/12/24 03:48> - Lab Data Result diagrams: 06/12/24 01:50 06/12/24 01:50 - EKG Data -: EKG Interpreted by Mo - Radiology Data Radiology results: report reviewed (CT abdomen pelvis negative for acute disease), image reviewed <Cas Brumfield - Last Filed: 06/12/24 21:20> - Medical Decision Making 44 Female to ER for nonspecific abdominal pain, normal lab testing normal CT patient can be discharged home (Cas Brumfield) - Lab Data Lab Results 06/12/24 06/12/24 06/12/24 Range/Units 01:50 01:50 01:50 WBC 7.8 (3.8-10.6) k/uL RBC 4.71 (3.80-5.40) m/uL Hgb 14.4 (11.4-16.0) gm/dL Hct 42.6 (34.0-46.0) % MCV 90.4 (80.0-100.0) fL MCH 30.6 (25.0-35.0) pg MCHC 33.9 (31.0-37.0) g/dL RDW 12.0 (11.5-15.5) % Plt Count 256 (150-450) k/uL MPV 7.5 Neutrophils % 42 % Lymphocytes % 49 % Monocytes % 5 % Eosinophils % 2 % Basophils % 1 % Neutrophils # 3.2 (1.3-7.7) k/uL Lymphocytes # 3.8 (1.0-4.8) k/uL Monocytes # 0.4 (0-1.0) k/uL Eosinophils # 0.2 (0-0.7) k/uL Basophils # 0.1 (0-0.2) k/uL Sodium 139 (137-145) mmol/L Potassium 4.0 (3.5-5.1) mmol/L Chloride 103 (98-107) mmol/L Carbon Dioxide 28 (22-30) mmol/L Anion Gap 8 mmol/L BUN 14 (7-17) mg/dL Creatinine 0.90 (0.52-1.04) mg/dL Est GFR (CKD-EPI)AfAm >90 (>60 ml/min/1.73 sqM) Est GFR (CKD-EPI)NonAf 80 (>60 ml/min/1.73 sqM) Glucose 104 H (74-99) mg/dL Plasma Lactic Acid Pepito 0.8 (0.7-2.0) mmol/L Calcium 9.7 (8.4-10.2) mg/dL Total Bilirubin 0.6 (0.2-1.3) mg/dL AST 24 (14-36) U/L ALT 15 (4-34) U/L Alkaline Phosphatase 122 (38-126) U/L Troponin I (0.000-0.034) ng/mL Total Protein 8.0 (6.3-8.2) g/dL Albumin 5.0 (3.5-5.0) g/dL Amylase 50 (30-110) U/L Lipase 120 (23-300) U/L Urine Color Urine Appearance (Clear) Urine pH (5.0-8.0) Ur Specific [place] (1.001-1.035) Urine Protein (Negative) Urine Glucose (UA) (Negative) Urine Ketones (Negative) Urine Blood (Negative) Urine Nitrite (Negative) Urine Bilirubin (Negative) Urine Urobilinogen (<2.0) mg/dL Ur Leukocyte Esterase (Negative) Urine RBC (0-5) /hpf Urine WBC (0-5) /hpf Ur Squamous Epith Cells (0-4) /hpf Urine Mucus (None) /hpf 06/12/24 06/12/24 Range/Units 01:50 02:04 WBC (3.8-10.6) k/uL RBC (3.80-5.40) m/uL Hgb (11.4-16.0) gm/dL Hct (34.0-46.0) % MCV (80.0-100.0) fL MCH (25.0-35.0) pg MCHC (31.0-37.0) g/dL RDW (11.5-15.5) % Plt Count (150-450) k/uL MPV Neutrophils % % Lymphocytes % % Monocytes % % Eosinophils % % Basophils % % Neutrophils # (1.3-7.7) k/uL Lymphocytes # (1.0-4.8) k/uL Monocytes # (0-1.0) k/uL Eosinophils # (0-0.7) k/uL Basophils # (0-0.2) k/uL Sodium (137-145) mmol/L Potassium (3.5-5.1) mmol/L Chloride (98-107) mmol/L Carbon Dioxide (22-30) mmol/L Anion Gap mmol/L BUN (7-17) mg/dL Creatinine (0.52-1.04) mg/dL Est GFR (CKD-EPI)AfAm (>60 ml/min/1.73 sqM) Est GFR (CKD-EPI)NonAf (>60 ml/min/1.73 sqM) Glucose (74-99) mg/dL Plasma Lactic Acid Pepito (0.7-2.0) mmol/L Calcium (8.4-10.2) mg/dL Total Bilirubin (0.2-1.3) mg/dL AST (14-36) U/L ALT (4-34) U/L Alkaline Phosphatase (38-126) U/L Troponin I <0.012 (0.000-0.034) ng/mL Total Protein (6.3-8.2) g/dL Albumin (3.5-5.0) g/dL Amylase (30-110) U/L Lipase (23-300) U/L Urine Color Colorless Urine Appearance Clear (Clear) Urine pH 5.0 (5.0-8.0) Ur Specific [place] 1.010 (1.001-1.035) Urine Protein Negative (Negative) Urine Glucose (UA) Negative (Negative) Urine Ketones Negative (Negative) Urine Blood Negative (Negative) Urine Nitrite Negative (Negative) Urine Bilirubin Negative (Negative) Urine Urobilinogen <2.0 (<2.0) mg/dL Ur Leukocyte Esterase Moderate H (Negative) Urine RBC 1 (0-5) /hpf Urine WBC 3 (0-5) /hpf Ur Squamous Epith Cells <1 (0-4) /hpf Urine Mucus Occasional H (None) /hpf Disposition <Maegan Allan - Last Filed: 06/12/24 03:48> Is patient prescribed a controlled substance at d/c from ED?: No Time of Disposition: 04:30 <Cas Brumfield - Last Filed: 06/12/24 21:20> Clinical Impression: Abdominal pain Disposition: HOME SELF-CARE Condition: Good Instructions (If sedation given, give patient instructions): Abdominal Pain (ED) Referrals: Jennifer Price MD [Primary Care Provider] - 1-2 days
--- NOTE | 2024-06-12 04:20 | CT ---
EXAM: CT Abdomen and Pelvis Without Intravenous Contrast CLINICAL HISTORY: ITS.REASON CT Reason: Epigastric pain TECHNIQUE: Axial computed tomography images of the abdomen and pelvis without intravenous contrast. CTDI is 10.4 mGy and DLP is 569.1 mGy-cm. This CT exam was performed using one or more of the following dose reduction techniques: automated exposure control, adjustment of the mA and/or kV according to patient size, and/or use of iterative reconstruction technique. COMPARISON: No relevant prior studies available. FINDINGS: Lung bases: Unremarkable. No mass. No consolidation. ABDOMEN: Liver: Unremarkable. Gallbladder and bile ducts: Unremarkable. No calcified stones. No ductal dilation. Pancreas: Unremarkable. No ductal dilation. Spleen: Unremarkable. No splenomegaly. Adrenals: Unremarkable. No mass. Kidneys and ureters: Unremarkable. No hydronephrosis, nephrolithiasis, or obstructive uropathy. Stomach and bowel: Diverticulosis, without acute diverticulitis. No small bowel obstruction. No free intraperitoneal air. PELVIS: Appendix: No findings to suggest acute appendicitis. Bladder: Unremarkable. No stones. Reproductive: Hysterectomy. ABDOMEN and PELVIS: Intraperitoneal space: Unremarkable. No free air. No significant fluid collection. Bones/joints: No acute fracture. No dislocation. Soft tissues: Unremarkable. Vasculature: Unremarkable. No abdominal aortic aneurysm. Lymph nodes: Unremarkable. No enlarged lymph nodes. IMPRESSION: 1. No hydronephrosis, nephrolithiasis, or obstructive uropathy. 2. Hysterectomy. 3. Diverticulosis, without acute diverticulitis. No small bowel obstruction. No free intraperitoneal air.
[2024-06-12 05:33] VITALS: BP 98/64; PULSE 62; TEMP 98.3
== END 2024-06-12 05:00 | disposition home or self-care (01) ==
LOC: EC 01:20
DX: K57.32 Diverticulitis of large intestine without perforation or abscess without bleeding (principal); Z88.0 Allergy status to penicillin; Z88.1 Allergy status to other antibiotic agents; Z88.5 Allergy status to narcotic agent; Z91.041 Radiographic dye allergy status; Z91.013 Allergy to seafood; Z88.8 Allergy status to other drugs, medicaments and biological substances
CPT/HCPCS: 36415; 93005; 80053; 82150; 83605; 83690; 84484; 85025; 81001; 74176; 99284; 96374; 96375 ×2; 96376; 96361 ×2; J2405; J3490; J1885